=== PATIENT | male | born 1970 | race Caucasian/White ===

== ENCOUNTER 2016-11-18 14:59 | Emergency (ER) | payer MEDICAID ==
[2016-11-18 15:50] LABS: BASOPHIL % 0.5 % (0-2); PLATELET COUNT 220 x10^3mcL (130-400); RED CELL DISTRIBUTION WIDTH 13.3 % (11.5-14.5)
[2016-11-18 15:59] LABS: CALCIUM 9.4 mg/dL (8.5-10.1); CARBON DIOXIDE 28.9 mmol/L (21-32); CHLORIDE SERUM 104 mmol/L (98-107); CREATININE SERUM 1.2 mg/dL (0.7-1.3); GFR1 > 60 mL/min; GLUCOSE SERUM 117 mg/dL (74-106); POTASSIUM SERUM 3.5 mmol/L (3.5-5.1); SODIUM SERUM 144 mmol/L (136-145)
[2016-11-18 16:01] LABS: ALBUMIN 4.2 g/dL (3.4-5.0); ALKALINE PHOSPHATASE 92 U/L (46-116); ALT/SGPT 37 U/L (16-63); AST/SGOT 22 U/L (15-37); BILIRUBIN TOTAL 0.4 mg/dL (0.20-1.00); TOTAL PROTEIN, SERUM 7.8 g/dL (6.4-8.2)
[2016-11-18 18:24] VITALS: BP 117/75
== END 2016-11-18 18:24 | disposition home or self-care (01) ==
LOC: ED 14:59
PROVIDERS: Emergency Medicine
DX: R07.89 Other chest pain (principal)
CPT/HCPCS: 83880; 85378; J1885; Q9967

== ENCOUNTER 2017-08-19 17:38 | Emergency (ER) | payer MEDICAID ==
[~2017-08-19] VITALS: Ht 170.2 cm; Wt 64.9 kg
[2017-08-19 18:00] VITALS: Ht 170.2 cm; Wt 64.9 kg
[2017-08-19 18:45] LABS: microscopic required? NO
[2017-08-19 19:01] LABS: CALCIUM 8.6 mg/dL (8.5-10.1); CARBON DIOXIDE 27.2 mmol/L (21-32); CHLORIDE SERUM 102 mmol/L (98-107); CREATININE SERUM 1.1 mg/dL (0.7-1.3); GFR1 > 60 mL/min; GLUCOSE SERUM 89 mg/dL (74-106); POTASSIUM SERUM 3.5 mmol/L (3.5-5.1); SODIUM SERUM 140 mmol/L (136-145)
[2017-08-19 19:05] LABS: ALKALINE PHOSPHATASE 72 U/L (46-116); ALT/SGPT 39 U/L (16-63); AST/SGOT 29 U/L (15-37); BILIRUBIN TOTAL 0.52 mg/dL (0.20-1.00); LIPASE 143 IU/L (73-393); TOTAL PROTEIN, SERUM 7.7 g/dL (6.4-8.2)
[2017-08-19 19:08] LABS: BASOPHIL % 0.6 % (0-2); PLATELET COUNT 213 x10^3mcL (130-400); RED CELL DISTRIBUTION WIDTH 13.3 % (11.5-14.5)
[2017-08-19 19:23] LABS: UA SPECIFIC GRAVITY 1.025 (1.005-1.035); urine erythrocyte NEGATIVE (NEGATIVE)
[2017-08-19 19:56] VITALS: BP 122/72
== END 2017-08-19 19:56 | disposition home or self-care (01) ==
LOC: ED 17:38
PROVIDERS: Emergency Medicine
DX: R10.9 Unspecified abdominal pain (principal); R30.0 Dysuria; R35.0 Frequency of micturition; R39.15 Urgency of urination
CPT/HCPCS: 83880; J1885; J2405

== ENCOUNTER 2018-12-31 11:56 | Emergency (ER) | payer MEDICAID ==
[~2018-12-31] VITALS: Ht 170.2 cm; Wt 64.9 kg
[2018-12-31 12:08] VITALS: Ht 170.2 cm; Wt 64.9 kg
[2018-12-31 13:27] VITALS: BP 106/70
== END 2018-12-31 13:27 | disposition home or self-care (01) ==
LOC: ED 11:56
DX: M72.2 Plantar fascial fibromatosis (principal); Z98.890 Other specified postprocedural states